=== PATIENT | male | born 1960 | race Caucasian/White ===

== ENCOUNTER 2017-11-28 09:10 | Inpatient (IN) | payer OTHER ==
[2017-11-28] VITALS (9 sets, daily range): BP systolic 98–125; BP diastolic 62–77
[~2017-11-28] VITALS: Ht 180.3 cm; Wt 107.0 kg
[~2017-11-28 09:10] MED LIST: ASPIRIN EC81 MG PO; LOSARTAN POT50 MG PO; NAPROSYN375 MG PO; TRICOR145 MG PO
--- NOTE | 2017-11-28 09:28 | NUR ---
PT TO ROOM 12 VIA WC.
--- NOTE | 2017-11-28 09:35 | NUR ---
AT BEDSIDE. PT REPORTS RLQ ABD PAIN X 1 DAY WITH NAUSEA AND VOMITING. PT BS ACTIVE AND RIGHT LOWER QUEADRENT TENDER TO THE TOUCH. IV INITIATED X 2 AND LABS AND BC X2 COLLECTED. PT AND AWARE OF PROBABLE PLAN OF CARE AND WAIT TIME. CALL CIELO GARCIAIN MANDO.
--- NOTE | 2017-11-28 09:50 | NUR ---
DR PERES AT BEDSIDE.
--- NOTE | 2017-11-28 10:20 | NUR ---
PT RESTING IN STRETCHER WITH EYES CLOSED. PT REPORTS PAIN CONTINUES TO BE 8/10 AND DENIES ANY NAUSEA AT THIS TIME. PT AND AWARE OF PENDING RESUTLS, WILL CONTINUE TO MONITOR. IV FLUIDS INFUSING WITH NO DIFFICULTY.
[2017-11-28 10:29] LABS: HEMATOCRIT 47.6 % (39.0-50.0); HEMOGLOBIN 15.7 g/dl (14.0-18.0); IMMATURE GRANULOCYTES 0.5 % (0.0-1.0); MEAN CELL VOLUME 84.1 fL CALC (80.0-100.0); MEAN CORPUSCULAR HGB 27.7 pG CALC (26.0-32.0); NEUT# 20.67 thou/uL (1.82-7.42); RED BLOOD COUNT 5.66 mill/uL (4.70-6.10); RED CELL DISTRI WIDTH 12.9 % (11.5-15.5)
[2017-11-28 10:43] LABS: ALBUMIN 4.3 g/dL (3.2-5.0); ALKALINE PHOSPHATASE 120 u/l (38-126); AMYLASE 90 u/l (30-110); ANION GAP 16 (6-22 (CALC)); BILIRUBIN, TOTAL 0.5 mg/dL (0.0-1.4); BUN 17 mg/dL (9-20); BUN/CREATININE RATIO 19 (12-20 (CALC)); CARBON DIOXIDE 25 mmol/l (22-30); CHLORIDE 105 mmol/l (95-108); CREATININE 0.9 mg/dL (0.7-1.3); GFR > 60 ML/MIN (>=60 (CALC)); GFR FOR AFR.AMER. > 60 ML/MIN (>=60 (CALC)); LIPASE 217 u/l (23-300); POTASSIUM 4.3 mmol/l (3.5-5.1); SGOT/AST 28 u/l (17-59); SGPT/ALT 36 u/l (21-72); SODIUM 141 mmol/l (137-146); TOTAL PROTEIN 7.6 g/dL (6.3-8.2)
--- NOTE | 2017-11-28 10:50 | NUR ---
TEMP RECHECK 100.4, MD AWARE.
[2017-11-28 10:55] LABS: MYOGLOBIN 19 ng/mL (0 - 121)
--- NOTE | 2017-11-28 11:00 | NUR ---
RORO FROM RT AT BEDSIDE.
--- NOTE | 2017-11-28 11:15 | NUR ---
MD AT BEDSIDE TO DISCUSS RESULTS AND PLAN FOR ADMISSION TO OR. PT PAIN CONTINUES TO BE 8/10, AWAITING NEW ORDERS.
--- NOTE | 2017-11-28 11:29 | NUR ---
PT TO OR VIA OR STAFF
[2017-11-28] MEDS ORDERED: PERCOCET1 TA2 PO (13:47)
[2017-11-28] MEDS ORDERED: Levaquin PO (13:47)
[2017-11-28] MEDS ORDERED: METRONIDAZOL500 MG PO (13:47)
--- NOTE | 2017-11-28 15:00 | NUR ---
BEDSIDE REPORT GIVEN BY KAROLINE WALDRON ARRIVED ON UNIT @ 1450, LETHARGIC BUT ORIENTED, O2 IN PLACE @ 2L VIA NC, INCISIONS X 3 TO ABDOMEN WITH SCANT DRAINAGE ON DRESSINGS, ABD DISTENDED, FIRM AND TENDER. IVF INFUSING, SCD IN PLACE, VITAL SIGNS BEING MEASURED AND RECORDED, CALL BUCK IN REACH.
--- NOTE | 2017-11-28 17:45 | NUR ---
DR PERES CONTACTED VIA PHONE ABOUT ORDERS, NEEDS PT NPO AND REPORTED ORDERS ALREADY PLACED IN [facility], INFORMED PT WAS GIVEN CLEAR LIQUID ORAL INTAKE AND ADVISED IF TOLERATED MAY GIVE CLEAR LIQUID. PT HAS TOLERATED PO INTAKE WITHOUT NAUSEA/VOMITTING.
--- NOTE | 2017-11-28 19:30 | NUR ---
PATIENT RESTING IN BED AT THIS TIME-AWAKE ALERT AND ORIENTEDX3. PATIENT WITH NO COMPLAINTS AT THIS TIME. IVF LR PATENT AND INFUSING VIA RIGHT AC SITE-APPEARS HEALTHY AT THIS TIME. HEP LOCK TO LEFT AC INTACT. PATIENT WITH ABD DRESSINGSX3 INTACT. ABD IS DISTENDED WITH HYPOACTIVE BS AT THIS TIME. SCD IN PLACE TO BLE. PATIENT IS NPO AT THIS TIME. ENCOURAGED CDB EXERCICSE AND INSTRUCTED ON USE OF IS Q1H WHILE AWAKE. SAFETY PRECAUTIONS REINFORCED. CALL LIGHT IN REACH. WILL CONT TO MONITOR.
--- NOTE | 2017-11-29 | NUR ---
PATIENT RESTING IN BED-MEDICATED FOR POST-OP PAIN WITH DILAUDID 2MG IVP ORDERED. REMAINS NPO ORDERED. IVF PATENT AND INFUSING AT 250CC/HR VIA RIGHT AC SITE. ZOSYN HUNG ORDERED. CALL LIGHT IN REACH. WILL CONT TO MONITOR.
[2017-11-29 01:58] VITALS: BP 111/74
--- NOTE | 2017-11-29 04:38 | NUR ---
PATIENT APPEARS SLEEPING AT THIS TIME. IVF PATENT AND INFUSING AT 250CC/HR. CALL LIGHT IN REACH. WILL CONT TO MONITOR.
[2017-11-29 05:48] LABS: HEMATOCRIT 37.2 % (39.0-50.0); HEMOGLOBIN 12.3 g/dl (14.0-18.0); IMMATURE GRANULOCYTES 1.5 % (0.0-1.0); MEAN CELL VOLUME 84.7 fL CALC (80.0-100.0); MEAN CORPUSCULAR HGB CONC 33.1 g/L CALC (32.0-36.0); NEUT# 16.48 thou/uL (1.82-7.42); RED BLOOD COUNT 4.39 mill/uL (4.70-6.10); RED CELL DISTRI WIDTH 13.3 % (11.5-15.5)
[2017-11-29 06:05] LABS: ALBUMIN 2.9 g/dL (3.2-5.0); ALKALINE PHOSPHATASE 68 u/l (38-126); ANION GAP 15 (6-22 (CALC)); BUN 12 mg/dL (9-20); BUN/CREATININE RATIO 14 (12-20 (CALC)); CARBON DIOXIDE 23 mmol/l (22-30); CHLORIDE 105 mmol/l (95-108); CREATININE 0.9 mg/dL (0.7-1.3); GFR > 60 ML/MIN (>=60 (CALC)); GFR FOR AFR.AMER. > 60 ML/MIN (>=60 (CALC)); SGOT/AST 19 u/l (17-59); SGPT/ALT 21 u/l (21-72); SODIUM 140 mmol/l (137-146); TOTAL PROTEIN 5.5 g/dL (6.3-8.2)
--- NOTE | 2017-11-29 06:21 | NUR ---
PATIENT RESTING IN BED AT THIS TIME-VOIDED DARK STEWART URINE IN URINAL-SPEC OBTAINED AND SENT TO LAB. PATIENT MEDICATED FOR POST-OP PAIN 7/10 ON PAIN SCALE WITH DILAUDID 2MG IVP ORDERED FOR PAIN. ZOSYN INFUSING ORDERED. ENCOURAGED USE OF IS Q1H WHILE AWAKE. ABD REMAINS DISTENDED AND FIRM. DRESSINGS ARE INTACT. CALL LIGHT IN REACH. WILL CONT TO MONITOR.
[2017-11-29 06:37] VITALS: BP 101/62
--- NOTE | 2017-11-29 08:00 | NUR ---
PT SEEN AWAKE, ALERT, RESTING IN THE BED. PT WITH CLEAR LUNG SOUNDS, RA, USES IS WHILE RESTING IN BED. BOWEL SOUNDS HYPOACTIVE, BUT NO REPORT OF NAUSEA WITH CLEAR LIQUIDS. WOUNDS ARE CDI. PAIN CONTROLLED.
[2017-11-29 11:05] VITALS: BP 117/73
--- NOTE | 2017-11-29 12:18 | NUR ---
PT HAS BEEN OOB TO BR AND IS NOW IN CHAIR. PT STATES NO GAS, BUT IS BURPING. ABDOMEN IS SOMEWHAT FIRM, DISTENDED.
[2017-11-29 14:27] LABS: URINE BILIRUBIN - DIPSTICK NEGATIVE (NEGATIVE); URINE BLOOD DIPSTICK NEGATIVE (NEGATIVE); URINE COLOR YELLOW; URINE GLUCOSE - DIPSTICK NEGATIVE (NEGATIVE); URINE KETONE NEGATIVE (NEGATIVE); URINE LEUK ESTERASE NEGATIVE (NEGATIVE); URINE NITRITE - DIPSTICK NEGATIVE (Negative); URINE PH 6.5 (4.5-8.0); URINE PROTEIN - DIPSTICK NEGATIVE (NEG-TRACE); URINE SPECIFIC GRAVITY 1.015; URINE UROBILINOGEN - DIPSTICK 0.2 E.U./dL (0.2)
[2017-11-29 14:30] LABS: URINE CLARITY CLEAR
--- NOTE | 2017-11-29 15:45 | NUR ---
Patient does not feel very well. he feels bloated and hot. I notified the ROUTE DRIVER SALESPERSON with complains. c
[2017-11-29 16:00] VITALS: BP 127/83
--- NOTE | 2017-11-29 16:24 | NUR ---
PT MADE NPO AGAIN AFTER CLEAR LIQUIDS MADE HIM BLOATED TO THE POINT OF MAKING HIS BREATHING DIFFICULT. PT AMBULATES IN ROOM, HAS PASSED GAS.
[2017-11-29 19:00] VITALS: BP 107/66
--- NOTE | 2017-11-29 20:00 | NUR ---
PATIENT RESTING IN BED AT THIS TIME-AWAKE ALERT AND PORIENTEDX3. PATIENT TAKING ICE CHIPS PO AND TOLERATING WELL. PATIENT ABD IS DISTENDED BUT SOFT WITH HYPOACTIVE BS-PATIENT STATES THAT HE IS PASSING "GAS". PATIENT WITH IV SITE TO RIGHT AC WITH IVF LR PATENT AND INFSUING AT 80CC/HR. SITE APPEARS HEALTHY AT THIS TIME. ABD DRESSING X3 CDI. VOIDING CLEAR YELLOW URINE IN URINAL. ENCOURAGED USE OF IS Q1H WHILE AWAKE-DEMONSTRATES ABILITY TO USE. SAFETY PRECAUTIONS REINFORCED.CALL LIGHT IN REACH. WILL CONT TO MONITOR.
[2017-11-30 00:28] VITALS: BP 136/90
--- NOTE | 2017-11-30 01:00 | NUR ---
PATIENT SITTING UP IN THE CHAIR-BACK TO BED-MEDICATED FOR POST-OP PAIN WITH DILAUDID 2MG IVP ORDERED FOR PAIN. CALL LIGHT IN REACH. WILL CONT TO MONITOR.
--- NOTE | 2017-11-30 04:11 | NUR ---
PATIENT APPEARS SLEEPING AT THIS TIME WITH EYES CLOSED. IVF LR PATENT AND INFUSING AT 80CC/HR. CALL LIGHT IN REACH. WILL CONT TO MONITOR.
[2017-11-30 04:14] VITALS: BP 132/84
[2017-11-30 05:38] LABS: IMMATURE GRANULOCYTES 0.6 % (0.0-1.0); MEAN CELL VOLUME 85.8 fL CALC (80.0-100.0); MEAN CORPUSCULAR HGB 27.8 pG CALC (26.0-32.0); MEAN CORPUSCULAR HGB CONC 32.4 g/L CALC (32.0-36.0); NEUT# 14.96 thou/uL (1.82-7.42); RED BLOOD COUNT 4.31 mill/uL (4.70-6.10); RED CELL DISTRI WIDTH 13.4 % (11.5-15.5)
[2017-11-30 06:35] LABS: ANION GAP 14 (6-22 (CALC)); BUN 9 mg/dL (9-20); BUN/CREATININE RATIO 12 (12-20 (CALC)); CARBON DIOXIDE 23 mmol/l (22-30); CHLORIDE 105 mmol/l (95-108); CREATININE 0.8 mg/dL (0.7-1.3); GFR > 60 ML/MIN (>=60 (CALC)); GFR FOR AFR.AMER. > 60 ML/MIN (>=60 (CALC)); POTASSIUM 3.7 mmol/l (3.5-5.1); SODIUM 138 mmol/l (137-146)
[2017-11-30 07:10] VITALS: BP 133/65
--- NOTE | 2017-11-30 08:30 | NUR ---
PT IS ALERT AND ORIENTED X3. NPO STATUS SWITHCED TO CLEAR LIQUID DIET PER DR. PERES ORDERS. WILL MONITOR TOLERANCE OF CLEAR LIQUIDS. SPEECH IS CLEAR, FACE SYMMETRICAL, PUPILS EQUAL AND REACTIVE TO LIGHT. HEART SOUNDS STRONG AND REGULAR RHYTHM. LUNGS CLEAR, NO SIGNS OF RESP DISTRESS, O2 SAT 98% ON ROOM AIR. RADIAL AND PEDAL PULSES STRONG, #22 GAUGE IV TO RAC, IV PATENT, SITE FREE FROM REDNESS AND EDEMA. ABD IS DISTENDED AND SOFT, HYPOACTIVE BOWEL SOUNDS IN ALL QUADRANTS, LAST BM 11/28/17, PT STATES THAT HE IS PASSING GAS, TENDERNESS/ACHING ABD PAIN R/T LAPAROSCOPIC APPENDECTOMY, PAIN IS 4/10-WAS GIVEN 2MG IV DILAUDID @ 0650 FOR PAIN RELIEF, ABD DRESSINGS X3. PT EDUCATED ON THE IMPORTANCE OF MOVING TO RELIEVE PAIN AND CONSTIPATION, PT STATES UNDERSTANDING AND SAYS HE HAS BEEN MOVING. NO EDEMA OF LOWER EXTREMITIES, SKIN CLEAR AND INTACT, PT HAS NO OTHER NEEDS AT THIS TIME, BED IN LOWEST POSITION AND CALL LIGHT WITHIN REACH.
--- NOTE | 2017-11-30 10:00 | NUR ---
ABD DRESSINGS X3 CHANGED. ALL INCISIONS CLEANED WITH NORMAL SALINE, DRIED, NEW GAUZE AND TEGADERM APPLIED. UMBILICAL INCISION PRESENTED NO DRAINAGE ON OLD DRESSING, EDGES WELL APPROXIMATED WITH THREE DIANN IN PLACE, NO REDNESS NOTED. LUQ INCISION PRESENTED A SCANT AMOUNT OF DRIED BLOOD ON OLD DRESSING, EDGES WELL APPROXIMATED WITH TWO DIANN IN PLACE, NO REDNESS NOTED. LLQ INCISION PRESENTED WITH LARGE AMOUNT OF SEROUS DRAINAGE AND SCANT AMOUNT OF DRIED BLOOD ON OLD DRESSING, EDGES WELL APPROXIMATED WITH FOUR DIANN IN PLACE, NO REDNESS NOTED. PT HAS NO OTHER NEEDS AT THIS TIME, CALL LIGHT WITHIN REACH.
--- NOTE | 2017-11-30 11:00 | NUR ---
PT.UPRIGHT IN RECLINER W/ AT BEDSIDE. PT.ASSESSED AND MEDICATED ORDERS PROVIDE. LUNG SOUNDS ARE CLEAR, NEURO INTACT, ACTIVE BOWEL SOUNDS AUDIBLE IN ALL 4 QUADRANTS. INCISIONS CDI. PT.REPORTS PAIN 5/10 AT THIS TIME. CALL LIGHT IS AT SIDE.
[2017-11-30 11:25] VITALS: BP 140/68
--- NOTE | 2017-11-30 11:48 | NUR ---
PT.UP IN RECLINER, IV FLUIDS ADMINISTERED. PT.ASSISTED BACK TO BED. CALL LIGHT IS W/IN REACH, PT.DENIED ANY OTHER NEEDS AT THIS TIME.
--- NOTE | 2017-11-30 14:00 | NUR ---
PT.MEDICATED FOR PAIN 03/02. DENIES ANY OTHER NEEDS AT THIS TIME. PT.LEFT LYING FLAT IN BED/REPORTS THAT IT FEELS BETTER TO LAY FLAT. CALL LIGHT IS AT SIDE
--- NOTE | 2017-11-30 14:05 | NUR ---
PT.MEDICATED FOR PAIN 04/02. PT.REPORTED STOOL IN TOILET. THERE WAS A LARGE DARK GREEN STOOL IN TOILET. PT.AMBULATED TO END OF FLOYD AND TO RESTROOM AND BACK.
[2017-11-30 16:00] VITALS: BP 135/82
[2017-11-30 19:00] VITALS: BP 122/75
--- NOTE | 2017-11-30 19:00 | NUR ---
RECEIVED CHANGE OF SHIFT REPORT FROM THANG MELARA. PATIENT ALERT AND ORIENTED. PATIENT AMBULATED IN THE HALLWAY. NO APPARENT ACUTE DISTRESS NOTED. WILL CONTINUE TO MONITOR.
--- NOTE | 2017-12-01 | NUR ---
PT LYING IN BED QUIETLY. NO APPARENT ACUTE DISTRESS NOTED AT THIS TIME.
--- NOTE | 2017-12-01 02:00 | NUR ---
PT OFF THE FLOOR VIA WHEELCHAIR TO RADIOLOGY FOR CT SCAN
--- NOTE | 2017-12-01 04:00 | NUR ---
NO APPARENT ACUTE CHANGES NOTED IN PT'S CONDITION.
[2017-12-01 04:42] VITALS: BP 138/81
[2017-12-01 05:20] LABS: HEMATOCRIT 33.9 % (39.0-50.0); IMMATURE GRANULOCYTES 0.7 % (0.0-1.0); MEAN CELL VOLUME 84.8 fL CALC (80.0-100.0); MEAN CORPUSCULAR HGB 27.5 pG CALC (26.0-32.0); MEAN CORPUSCULAR HGB CONC 32.4 g/L CALC (32.0-36.0); NEUT# 9.72 thou/uL (1.82-7.42); RED CELL DISTRI WIDTH 13.1 % (11.5-15.5)
[2017-12-01 05:34] LABS: ANION GAP 12 (6-22 (CALC)); BUN 8 mg/dL (9-20); BUN/CREATININE RATIO 10 (12-20 (CALC)); CARBON DIOXIDE 26 mmol/l (22-30); CHLORIDE 106 mmol/l (95-108); CREATININE 0.8 mg/dL (0.7-1.3); GFR > 60 ML/MIN (>=60 (CALC)); GFR FOR AFR.AMER. > 60 ML/MIN (>=60 (CALC)); MAGNESIUM 1.9 mg/dL (1.6-2.3); POTASSIUM 3.3 mmol/l (3.5-5.1); SODIUM 140 mmol/l (137-146)
[2017-12-01 08:00] VITALS: BP 128/78
--- NOTE | 2017-12-01 08:00 | NUR ---
PT.IS IN BED W/LIGHTS OFF APPEARS TO BE SLEEPING AT THIS TIME. REPORT RECEIVED FROM NIGHT NURSE ANDRIA. PT.AWOKE TO MY ENTERING ROOM. V/S AND ASSESSMENT WERE COMPLETED AT THIS TIME. ABD IS DISTENDED/SOFT W/DRESSINGS X3 CDI. APPEAR TO BE GAUZE W/TEGADERM DRESSING IN PLACE. LUNG SOUNDS ARE CLEAR. PT.REPORTS 1 LARGE LOOSE STOOL OVERNIGHT AND STATES THAT HE DOESN'T WANT ANYMORE STOOL SOFTENERS. PT.IS WANTING TO GO BACK TO SLEEP, CALL LIGHT IS W/IN REACH AND PT.INSTRUCTED TO CALL IF ANY NEEDS ARISE.
--- NOTE | 2017-12-01 10:26 | NUR ---
PT.MEDICATED W/AM MEDICATIONS AND IV ANTIBIOTIC THERAPY. PT.IS UPRIGHT IN RECLINER AND DENIES ANY OTHER NEEDS AT THIS TIME. STOOL SOFTENER HELD/PT.REFUSED/REPORTS LARGE LOOSE STOOL OVERNIGHT.
--- NOTE | 2017-12-01 12:00 | NUR ---
PT.IS AMBULATING HALLWAY ACCOMPANIED BY . DENIES ANY DIFFICULTY.
--- NOTE | 2017-12-01 12:46 | NUR ---
S: JIMMIE LANDERS is a 57 M who presents with appendicitis with perforation. He has a history of appendectomy. All medications in patient's chart were reviewed. O: VS: BP 128/78, P 82, RR 20,T 98.8 W 103 kg, HT 71 in, Scr= 0.8, CrCl= 105.9 ml/min A: Blood culture is pending P: Patient is on Zosyn 3.375 g IV Q6H. Vancomycin ordered for pharmacy to dose. Start Vancomycin 1500mg IV Q12H. Vancomycin trough is drawn before the 4th dose on 12/02/17 at 20:30. Vancomycin goal trough is between 10-20 mcg/ml. Pharmacy will follow and or advise on antibiotics use as needed.
[2017-12-01 15:21] VITALS: BP 131/77
--- NOTE | 2017-12-01 15:50 | NUR ---
Patient feels okay. complains of fever going up and down. Patient is feeling okay pain rae and was educated on current pain and abx medications used.c
--- NOTE | 2017-12-01 19:20 | NUR ---
REPORT RECEIVED FROM THANG MELARA;PT AMBULATING THROUGH THE HALLS AT THIS TIME;INTROUDUCED SELF TO PT AND POC DISCUSSED;PT ENCOURAGED TO CALL FOR ASSISTANCE IF NEEDED;WILL CONTINUE TO MONITOR
[2017-12-01 19:21] VITALS: BP 133/84
--- NOTE | 2017-12-01 20:20 | NUR ---
PT RESTING IN SUPINE POSITION WATCHING TV;PT A&O X3;PT COMPLAINS OF ABDOMINAL GAS/PAIN RATING 7/10 ON THE PAIN SCALE AND REQUEST PAIN MEDICATION;PT MEDICATED WITH PRN PERCOCET 10/325MG 1 COMBO;AMBULATION ENCOURAGED TO PASS FLATUS PAIN;ASSESSMENT COMPLETED;RESPIRATIONS EVEN AND UNLABORED ON RA,CLEAR LUNG SOUNDS NOTED;I.S. AT BEDSIDE AND PT DEMONSTRATED USE;DRESSINGS X3 TO LOWER ABDOMEN CDI WITH ACTIVE BOWEL SOUNDS;SOFT ABDOMEN; PERRLA;#22G TO RAC INFUSING LE @ 80ML/HR,SITE APPEARS HEALTHY;STRONG PEDAL PULSES;PT DENIES ANY OTHER NEEDS AT THIS TIME;SAFETY PRECAUTIONS REINFORCED WITH BED IN THE LOWEST POSITION;CALL LIGHT IN REACH;WILL CONTINUE TO MONITOR
--- NOTE | 2017-12-01 21:05 | NUR ---
PT CURRENT TEMP 100.7;PT MEDICATED WITH TYLENOL 650MG PO,BLANKETS REMOVED AND AC LOWERED;WILL MONITOR FOR EFFECTIVENESS
--- NOTE | 2017-12-01 22:00 | NUR ---
TEMP RE-CHECK 99.8
--- NOTE | 2017-12-02 | NUR ---
PT APPEARS TO BE SLEEPING IN SUPINE POSITION;WOKE PT TO OBTAIN VS;CURRENT TEMP 99.2;IV FLUIDS INFUSING WELL TO RAC;RESPIRATIONS EVEN AND UNLABORED ON RA;500CC OF CLEAR/YELLOW URINE EMPTIED FROM URINAL;PT DENIES ANY NEEDS AT THIS TIME;CALL LIGHT IN REACH;WILL CONTINUE TO MONITOR
[2017-12-02 00:02] VITALS: BP 139/80
--- NOTE | 2017-12-02 02:15 | NUR ---
PT OOB AMBULATING THE FLOYD WITH A STEADY GAIT, PT STATES "IM GONNA WALK IM HAVING SOME GAS PAINS"
--- NOTE | 2017-12-02 04:20 | NUR ---
PT APPEARS TO BE SLEEPING IN SUPINE POSITION;PT AWAKENS TO VERBAL STIMULI;VS OBTAINED;CURRENT TEMP 98.4;RESPIRATIONS EVEN AND UNLABORED ON RA;IV FLUIDS INFUSING WELL TO RAC;900CC OF CLEAR/YELLOW URINE EMPTIED FROM URINAL;DAILY WEIGHT OBTAIND PER ORDER;PT VOICES NO OTHER NEEDS AT THIS TIME;CALL LIGHT IN REACH;WILL CONTINUE TO MONITOR
[2017-12-02 04:23] VITALS: BP 134/74
[2017-12-02 05:20] LABS: HEMOGLOBIN 10.8 g/dl (14.0-18.0); IMMATURE GRANULOCYTES 0.6 % (0.0-1.0); MEAN CELL VOLUME 83.3 fL CALC (80.0-100.0); MEAN CORPUSCULAR HGB 27.3 pG CALC (26.0-32.0); MEAN CORPUSCULAR HGB CONC 32.7 g/L CALC (32.0-36.0); NEUT# 7.05 thou/uL (1.82-7.42); RED BLOOD COUNT 3.96 mill/uL (4.70-6.10); RED CELL DISTRI WIDTH 12.8 % (11.5-15.5)
--- NOTE | 2017-12-02 07:05 | NUR ---
REPORT RECEIVED FROM CHARLI EATON. PT AMBULATING IN HALLWAYS. DENIES PAIN. REPORTING OF CONCERNS ENCOURAGED. PT STATES ANTICIPATION OF DISCHARGE. DISCHARGE PROCESS REVIEWED. CALL LIGHT REVIEWED. PT STATES UNDERSTANDING.
[2017-12-02 07:55] VITALS: BP 117/73
--- NOTE | 2017-12-02 12:19 | NUR ---
PT SUPINE IN BED. DENIES COMPLAINTS. SIGNIFICANT OTHER AT BEDSIDE. STATES "IM JUST WAITING TO GET OUT OF HERE."
--- NOTE | 2017-12-02 13:50 | NUR ---
Saw pt for discharge medication education. Pt is highly medically literate and explains that his spouse works in healthcare. Reinforced potential disulfiram-like reaction with metronidazole and the importance of finishing course of antibiotics. Pt had no further questions or concerns.
--- NOTE | 2017-12-02 14:39 | NUR ---
Discharge instructions given. Patient verbalizes understanding of same. Discharged in stable condition via Wheelchair to Home with significant other. All belongings sent with pt.
== END 2017-12-02 14:42 | disposition home or self-care (01) | DRG 339 ==
LOC: ED 09:10 → ED-I 10:59 → ED 11:00 → ORM 11:00 → MS2 14:40
PROVIDERS: Emergency Medicine; Internal Medicine; Nurse Practitioner Family; ADMIT Surgery; ATTEND Surgery
PROC: 0DTJ4ZZ Resection of Appendix, Percutaneous Endoscopic Approach (ICD-10-PCS; principal; 2017-11-28)
DX: K35.2 Acute appendicitis with generalized peritonitis (principal); K56.7 Ileus, unspecified; K42.9 Umbilical hernia without obstruction or gangrene
CPT/HCPCS: J1650; J2710; J3370; S0164

== ENCOUNTER 2019-06-13 15:47 | Emergency (ER) | payer OTHER ==
[~2019-06-13] VITALS: Ht 180.3 cm; Wt 90.0 kg
[~2019-06-13 15:47] MED LIST changes: +Levaquin PO; +METRONIDAZOL500 MG PO; +PERCOCET1 TA2 PO
[2019-06-13] MEDS ORDERED: COLCHICINE0.6 M2 PO (16:09)
[2019-06-13] MEDS ORDERED: MELATONIN3 M4 PO (16:10)
[2019-06-13] MEDS ORDERED: PERCOCET 10/31 COMBO PO (16:11)
[2019-06-13 16:35] LABS: IMMATURE GRANULOCYTES 0.3 % (0.0-5.0); MEAN CELL VOLUME 84.6 fL CALC (80.0-100.0); MEAN CORPUSCULAR HGB 26.6 pG CALC (26.0-32.0); MEAN CORPUSCULAR HGB CONC 31.5 g/L CALC (32.0-36.0); NEUT# 6.86 thou/uL (1.82-7.42); RED BLOOD COUNT 5.07 mill/uL (4.70-6.10); RED CELL DISTRI WIDTH 14.3 % (11.5-15.5)
[2019-06-13 16:40] LABS: HEMATOCRIT 42.9 % (39.0-50.0); HEMOGLOBIN 13.5 g/dl (14.0-18.0)
[2019-06-13 16:57] LABS: ANION GAP 14 (6-22 (CALC)); BUN 13 mg/dL (9-20); BUN/CREATININE RATIO 21 (12-20 (CALC)); CARBON DIOXIDE 25 mmol/l (22-30); CHLORIDE 103 mmol/l (95-108); CREATININE 0.6 mg/dL (0.7-1.3); GFR > 60 ML/MIN (>=60 (CALC)); GFR FOR AFR.AMER. > 60 ML/MIN (>=60 (CALC)); SODIUM 138 mmol/l (137-146)
[2019-06-13 18:39] VITALS: BP 137/82
== END 2019-06-13 18:51 | disposition home or self-care (01) | DRG 950 ==
LOC: ED 15:47
PROVIDERS: Family Medicine
DX: S30.1XXD Contusion of abdominal wall, subsequent encounter (principal); S32.302D Unspecified fracture of left ilium, subsequent encounter for fracture with routine healing; S80.812D Abrasion, left lower leg, subsequent encounter; S80.811D Abrasion, right lower leg, subsequent encounter; V89.2XXD Person injured in unspecified motor-vehicle accident, traffic, subsequent encounter
CPT/HCPCS: Q9967

== ENCOUNTER 2024-12-16 21:43 | Emergency (ER) | payer MEDICARE, OTHER ==
[~2024-12-16] VITALS: Ht 180.3 cm; Wt 120.0 kg
[~2024-12-16 21:43] MED LIST changes: +COLCHICINE0.6 M2 PO; +MELATONIN3 M4 PO; +PERCOCET 10/31 COMBO PO
[2024-12-16 21:58] VITALS: BP 153/80
[2024-12-16 22:01] VITALS: BP 135/86
[2024-12-16 22:31] VITALS: BP 137/83
[2024-12-16] MEDS ORDERED: HYDROmorphone HCL 2 MG/AMP IV ONE (22:55)
[2024-12-16 23:01] VITALS: BP 149/75
[2024-12-17 00:17] VITALS: BP 149/75
== END 2024-12-17 00:17 | disposition short-term general hospital (02) ==
LOC: ED 21:43
PROC: 2W3QX1Z Immobilization of Right Lower Leg using Splint (ICD-10-PCS; principal; 2024-12-16)
DX: S82.241A Displaced spiral fracture of shaft of right tibia, initial encounter for closed fracture (principal); I10 Essential (primary) hypertension; V28.09XA Other motorcycle driver injured in noncollision transport accident in nontraffic accident, initial encounter; Z87.81 Personal history of (healed) traumatic fracture
CPT/HCPCS: J1171